=== PATIENT | female | born 1985 | race Caucasian/White ===

== ENCOUNTER 2022-07-06 16:28 | Outpatient (CLI) | payer OTHER, SELFPAY ==
[2022-07-06] VITALS (7 sets, daily range): BP systolic 139–143; BP diastolic 74–82; PULSE 66–83; RESP 18; TEMP 36.8; O2SAT 98
[2022-07-06 17:44] LABS: Total Protein Urine 15 mg/dL
[2022-07-06 17:44] LABS: Alanine Aminotransferase* 16 U/L (4-35); Aspartate Amino Transferase* 25 U/L (12-35); Blood Urea Nitrogen* 7 mg/dL (5-24); Creatinine* 0.5 mg/dL (0.5-1.5); Estimated Glomerular Filt Rate 125 ml/min
[2022-07-06 17:52] LABS: Hematocrit 31.3 % (33.0-51.0); Hemoglobin* 10.3 gm/dL (12.0-16.0); Mean Corpuscular HGB Conc 33 gm/dL (32-36); Mean Corpuscular Hemoglobin 29 pg (26-34); Mean Corpuscular Volume 87 fL (80-100); Platelet Count* 270 K/uL (140-440); White Blood Count* 11.33 K/uL (4.50-11.00)
[2022-07-06 17:57] LABS: Slide Review Reflex No
--- NOTE | 2022-07-06 18:49 | P.OBLDTN_ITS ---
OB - Triage/Final Diagnosis Visit Information Date Seen: 07/06/22 Narrative: The patient is a 37 year old 2 para 1 at 36+4 weeks gestation by LMP confirmed with first trimester US, who presents with elevated BP readings at home and clinic ranging from 130-150s/80s. She reports no headache, no vision changes, no RUQ pain or swelling. She has a history of preeclampsia with prior . Evaluation Cervical dilation (cm): 0 Cervical effacement (%): 10 Laboratory results: Laboratory Tests 07/06/22 07/06/22 07/06/22 Range/Units 17:16 17:16 16:46 WBC 11.33 H (4.50-11.00) K/uL RBC 3.60 L (4.00-5.20) m/uL Hgb 10.3 L (12.0-16.0) gm/dL Hct 31.3 L (33.0-51.0) % MCV 87 (80-100) fL MCH 29 (26-34) pg MCHC 33 (32-36) gm/dL Plt Count 270 (140-440) K/uL BUN 7 (5-24) mg/dL Creatinine 0.5 (0.5-1.5) mg/dL Estimated GFR 125 ml/min AST 25 (12-35) U/L ALT 16 (4-35) U/L Urine Creatinine 38.0 mg/dL Protein/Creatinin Ratio 0.30 H (0-0.19) Urine Total Protein 15 mg/dL Vital signs: Vital Signs - 24 hr 07/06/22 16:55 07/06/22 17:00 07/06/22 17:05 Temperature Pulse Rate 70 Respiratory Rate Blood Pressure 139/78 Pulse Oximetry 98 98 07/06/22 17:05 07/06/22 17:27 07/06/22 17:37 Temperature 98.2 F Pulse Rate 66 71 Respiratory Rate 18 Blood Pressure 141/74 H 143/82 H Pulse Oximetry 07/06/22 17:47 07/06/22 17:58 Temperature Pulse Rate 75 69 Respiratory Rate Blood Pressure 142/82 H 139/80 Pulse Oximetry Fetus (Single) Heart Rate Baseline: 130 Guest Service Manager Variability: Moderate (6-25) Monitor Accelerations: Present Monitor Decelerations: None Station: -3 Final Diagnosis (1) : Status: Acute Problem details: 37-year-old 011 presents to discuss vaginal trial of labor in the setting of previous x1. section in 2018 due to non reassuring status. Her was induced due to preeclampsia at 37 weeks. She did meet criteria for preeclampsia with severe features and was treated with magnesium sulfate. This has been essentially uncomplicated. So far, blood pressures have been normal. Discussed with patient and that I cannot find any contraindications for a vaginal trial of labor. Discussed our clinic vaginal trial of labor after section consent form, given to patient to review at home, instructed that she should give it to her [facility] provider to be scanned in our system. Reviewed risk of uterine rupture and how we have established protocols to improve safety and still support our family medicine providers. Discussed recommendation to repeat a pelvic US at 36 weeks. Patient was satisfied with our discussion today and we will plan to follow up if needed if there are any changes during her in terms of new diagnosis etc... (2) Gestational HTN: Status: Acute
--- NOTE | 2022-07-06 19:33 | PC.OBNST ---
NST Note NST Note Start: 07/06/22 16:46 Freq: ONCE Status: Active Protocol: Document 07/06/22 18:00 CRISTINA (Rec: 07/06/22 19:33 CRISTINA [id number]) NST Note 3 Para (# of births) 1 EDC 07/31/22 Gestational Age In Weeks & Days 36 Weeks & 3 Days High Risk Factors High Blood Pressure - Gestational Patient Presented with Complaint(s) of Other Other Complaints Pt. sent over from [facility] [place] to evaluate high BP obtained in clinic. Orders for Pre E labs, EFM and serial BP's Reactive Yes Appropriate for Gestational Age Yes LAI Boyd Date 07/06/22 Reactive Yes Appropriate for Gestational Age Yes LAI Otoole Date 07/06/22 OB NST charge Yes Complete NST Note via Write Note Yes The provider's electronic signature indicates the NST is reactive/appropriate for gestational age. *Note to provider: If an addendum is required, open the patient's chart and click on the note under the Nurse/Allied Health tab.
[2022-07-07 11:58] LABS: Strep B DNA Probe NEGATIVE (Negative)
[2022-07-08 03:09] LABS: Strep B Pen/Amox Allergy No
== END 2022-07-06 18:10 | disposition home or self-care (01) ==
LOC: OB OUT 16:30 → OB 16:32
PROVIDERS: PCP Family Medicine; Visit Provider Family Medicine
DX: O13.3 Gestational [pregnancy-induced] hypertension without significant proteinuria, third trimester (principal); Z3A.36 36 weeks gestation of pregnancy
CPT/HCPCS: 36415; 59025; 82565; 82570; 84156; 84450; 84460; 84520; 85027; 87081; 87653; 99213

== ENCOUNTER 2022-07-10 18:00 | Inpatient (IN) | payer OTHER, SELFPAY ==
[2022-07-10] VITALS (10 sets, daily range): BP systolic 135–170; BP diastolic 71–96; PULSE 71–85; TEMP 36.8–37.1; O2SAT 98; BMI 32.7
[2022-07-10 18:52] LABS: Basophils Percent Auto 0.3 % (0.0-3.0); Hemoglobin* 10.4 gm/dL (12.0-16.0); Mean Corpuscular Hemoglobin 29 pg (26-34); Mean Corpuscular Volume 84 fL (80-100); RDW Coefficient of Variation % 13.1 % (11.5-15.5)
[2022-07-10 18:53] LABS: Slide Review Reflex No
[2022-07-10 19:04] LABS: Immature Granulocytes Pct Auto 0.2 %
[2022-07-10 19:05] LABS: Eosinophils Percent Auto 3.2 % (0.0-7.0); Hematocrit 30.2 % (33.0-51.0); Lymphocytes Percent Auto 18.6 % (20-44); Mean Corpuscular HGB Conc 34 gm/dL (32-36); Monocytes Percent Auto 6.1 % (0.0-11.0); Neutrophils Percent Auto 71.6 % (42.0-72.0); Platelet Count* 293 K/uL (140-440); Red Blood Count 3.61 m/uL (4.00-5.20)
[2022-07-10 19:06] LABS: INR 0.92 (0.91-1.10); Prothrombin Time 12.9 Seconds
[2022-07-10 19:07] LABS: Creatinine* 0.6 mg/dL (0.5-1.5); Est. Creatinine Clearance* 132.02; Estimated Glomerular Filt Rate 120 ml/min
[2022-07-10 19:08] LABS: Alanine Aminotransferase* 17 U/L (4-35); Aspartate Amino Transferase* 24 U/L (12-35); Blood Urea Nitrogen* 7 mg/dL (5-24); Fibrinogen* 451 mg/dL (200-450)
[2022-07-10 19:24] LABS: SARS PCR* Negative SARS-CoV-2 (Negative)
--- NOTE | 2022-07-10 19:47 | P.OBHP_ITS ---
OB - H&P: HPI Labor/Induction History of Present Illness Date Seen: 07/10/22 Chief Complaint: The patient is a 37 year old 2 para 1 at 37 weeks gestation by LMP confirmed with 1st trimester US, who presents for IOL for gestational HTN. Chief complaint: GHTN/TOLAC : 2 Para: 1 Indications for induction: induced hypertension Narrative: Noreen Collins is a 37 year old female here for induction for gestational HTN diagnosed in the last week with elevated home and clinic BP readings. She has had no headaches, no vision changes, no RUQ pain and no swelling. Baby has been active and no regular contractions. Prior to the last week, had been uncomplicated. History of Present Dating criteria: based on LMP care: good care Ultrasounds: normal mid trimester US complications: gestational hypertension Medical complications: none Labs Blood type: A (+) positive Rubella: immune RPR/VDLR: nonreactive GBS status: negative HBsAG: negative Review of Systems Status of ROS: Reports: 6 or more systems reviewed and unremarkable except as noted in History and below Meds Home Medications and Allergies Home Medications Medication Instructions Recorded Confirmed Type aspirin 81 mg chewable tablet 81 mg PO QDAY 05/31/22 07/10/22 History prenat.vits,arsen,ppx-ooxt-sborj 1 tab PO QDAY 05/31/22 07/10/22 History Allergies Allergy/AdvReac Type Severity Reaction Status Date / Time No Known Allergies Allergy Unknown Unverified 05/31/22 10:51 OB - H&P: Exam Physical Exam: Vital signs: Temp Pulse BP Pulse Ox 98.7 F 82 135/73 98 07/10/22 18:29 07/10/22 18:44 07/10/22 18:44 07/10/22 18:35 Constitutional: Constitutional: no acute distress Routine HEENT Exam: Head: Present atraumatic Eye: Present EOMI ENT: Pres ent mucous membranes moist Routine Neck Exam: Neck: Present full ROM Routine Respiratory Exam: Respiratory: Present CTA bilaterally Routine Cardiovascular Exam: Cardiovascular: RRR Comments: no murmur Routine Abdominal Exam: Abdominal: Present soft Comments: no tenderness Detailed Labor and Delivery Exam: Patient Gravid: Yes Dilation (cm): 1 Effacement (%): 40 Cervix position: posterior Consistency: soft Fetus (Single): Station: -3 Routine Back/Spine/Pelvis Exam: Back/Spine: full ROM Routine Skin Exam: Present intact Routine Neurological Exam: Present alert and oriented X3 OB - Results Labs Labs: Short CBC 07/10/22 Range/Units 18:41 WBC 11.10 H (4.50-11.00) K/uL Hgb 10.4 L (12.0-16.0) gm/dL Hct 30.2 L (33.0-51.0) % Plt Count 293 (140-440) K/uL BMP 07/10/22 18:41 BUN 7 Creatinine 0.6 Liver Function 07/10/22 Range/Units 18:41 AST 24 (12-35) U/L ALT 17 (4-35) U/L OB - Problem Based A/P Additional Plan (1) Gestational HTN: Status: Acute (2) : Problem details: 37-year-old 011 presents to discuss vaginal trial of labor in the setting of previous x1. section in 2018 due to non reassuring status. Her was induced due to preeclampsia at 37 weeks. She did meet criteria for preeclampsia with severe features and was treated with magnesium sulfate. This has been essentially uncomplicated. So far, blood pressures have been normal. Discussed with patient and that I cannot find any contraindications for a vaginal trial of labor. Discussed our clinic vaginal trial of labor after section consent form, given to patient to review at home, instructed that she should give it to her [facility] provider to be scanned in our system. Reviewed risk of uterine rupture and how we have established protocols to improve safety and still support our family medicine providers. Discussed recommendation to repeat a pelvic US at 36 weeks. Patient was satisfied with our discussion today and we will plan to follow up if needed if there are any changes during her in terms of new diagnosis etc... Status: Acute (3) Advanced maternal age (AMA) in : Status: Acute Delivery/Labor/Induction Plan Plan: induction Induction method: Intracervical balloon catheter (Placed with 60 mL in both intrauterine and intracervical balloons. )
[2022-07-10 21:02] LABS: Total Protein Urine 22 mg/dL
[2022-07-10] MEDS: MORPHINE 10 MG/ML inj IM (22:39)
[2022-07-10] MEDS: hydrOXYzine pamoate 25 MG CAPSULE 100 MG PO (22:39)
[2022-07-11] VITALS (112 sets, daily range): BP systolic 103–166; BP diastolic 51–85; PULSE 49–77; RESP 16–18; TEMP 36.4–36.9; O2SAT 99–100
[2022-07-11] MEDS: OXYTOCIN 30 unit/500 ML in NS 30 UNIT/500 ML BAG IVPB (00:10)
[2022-07-11] MEDS: LACTATED RINGERS 1000 ML 1,000 ML 125 ML IV ×2 (00:10→08:09)
[2022-07-11] MEDS: LABETALOL HCL 5 MG/ML inj IVP ×2 (08:44→15:30)
[2022-07-11] MEDS: MAGNESIUM SULFATE 2 GM/50 ML PIGGYBACK IVPB (09:06)
[2022-07-11 09:32] LABS: Hematocrit 30.6 % (33.0-51.0); Hemoglobin* 10.3 gm/dL (12.0-16.0); Mean Corpuscular HGB Conc 34 gm/dL (32-36); Mean Corpuscular Hemoglobin 29 pg (26-34); Mean Corpuscular Volume 86 fL (80-100); Platelet Count* 232 K/uL (140-440); Red Blood Count 3.55 m/uL (4.00-5.20); White Blood Count* 13.78 K/uL (4.50-11.00)
[2022-07-11 09:41] LABS: Slide Review Reflex No
[2022-07-11 09:53] LABS: Creatinine* 0.5 mg/dL (0.5-1.5); Est. Creatinine Clearance* 158.42; Estimated Glomerular Filt Rate 125 ml/min
[2022-07-11 09:54] LABS: Alanine Aminotransferase* 15 U/L (4-35); Aspartate Amino Transferase* 21 U/L (12-35); Blood Urea Nitrogen* 5 mg/dL (5-24)
--- NOTE | 2022-07-11 12:01 | PM.OBPNL ---
Subjective Date Seen: 07/11/22 Objective Exam: at 37+1 with IOL for gestational HTN. Has had BP readings >160 systolic and has been started on magnesium and had one dose of labetalol. Baby has also been transverse presentation per mom. Bedside US shows baby is now vertex which is confirmed with cervical check, however cervix is too posterior and thick to AROM at this time. Vital Signs: Last Vital Signs Temp 98.2 F 07/11/22 04:17 Pulse 62 07/11/22 11:43 BP 134/67 07/11/22 11:43 Pulse Ox 98 07/10/22 18:35 Pelvic Exam Dilation (cm): 4 Effacement (%): 50 Station: -4 Contractions Monitor mode: External Contraction pattern: Irregular Contraction intensity: Mild Assessment Assessment: induction ongoing Station: -3 Status: Category l [facility] Variability: Moderate (6-25) Monitor Accelerations: Present Monitor Decelerations: None Plan Plan: Continue pitocin protocol and patient up walking to encourage descent. Magnesium per protocol. Continue to treat BP >160/110.
[2022-07-11] MEDS: LIDOCAINE 2% (PF) 5 ML VIAL EPIDURAL (16:03)
[2022-07-11] MEDS: ROPIVACAINE 0.2% 100 ml 100 ML 12 MG EPIDURAL ×2 (16:04→23:31)
[2022-07-11] MEDS: PHENYLEPHRINE 100 MCG/ML SYRINGE IVP ×4 (16:14→16:56)
--- NOTE | 2022-07-11 16:21 | PM.ANBPRC ---
[facility] Medical History Gestational HTN Surgical History Status post primary low transverse section Family History Grandmother No problems noted. Social History Smoking Status: Never smoker Meds Home Medications and Allergies Home Medications Medication Instructions Recorded Confirmed Type aspirin 81 mg chewable tablet 81 mg PO QDAY 05/31/22 07/10/22 History prenat.vits,arsen,fcu-rzfn-okcxs 1 tab PO QDAY 05/31/22 07/10/22 History Allergies Allergy/AdvReac Type Severity Reaction Status Date / Time No Known Allergies Allergy Unknown Verified 07/11/22 09:37 Results Labs Labs: Laboratory Results - last 24 hr 07/10/22 07/10/22 07/10/22 18:33 18:41 18:41 WBC RBC Hgb Hct MCV MCH MCHC RDW Coeff of Esau Plt Count Neut % (Auto) Lymph % (Auto) [place] % (Auto) Eos % (Auto) Baso % (Auto) Neut # (Auto) Lymph # (Auto) [place] # (Auto) Eos # (Auto) Baso # (Auto) INR 0.92 Fibrinogen 451 H BUN 7 Creatinine 0.6 Estimated Creat Clear 132.02 Estimated GFR 120 AST 24 ALT 17 Urine Creatinine Protein/Creatinin Ratio Urine Total Protein SARS-CoV-2 (PCR) Negative SARS-CoV-2 Blood Type Antibody Screen 07/10/22 07/10/22 07/10/22 18:41 18:41 20:00 WBC 11.10 H RBC 3.61 L Hgb 10.4 L Hct 30.2 L MCV 84 MCH 29 MCHC 34 RDW Coeff of Esau 13.1 Plt Count 293 Neut % (Auto) 71.6 Lymph % (Auto) 18.6 L [place] % (Auto) 6.1 Eos % (Auto) 3.2 Baso % (Auto) 0.3 Neut # (Auto) 7.90 H Lymph # (Auto) 2.10 [place] # (Auto) 0.70 Eos # (Auto) 0.40 Baso # (Auto) 0.00 INR Fibrinogen BUN Creatinine Estimated Creat Clear Estimated GFR AST ALT Urine Creatinine 279.0 Protein/Creatinin Ratio 0.00 Urine Total Protein 22 SARS-CoV-2 (PCR) Blood Type A Positive Antibody Screen NEGATIVE 07/11/22 07/11/22 09:20 09:20 WBC 13.78 H RBC 3.55 L Hgb 10.3 L Hct 30.6 L MCV 86 MCH 29 MCHC 34 RDW Coeff of Esau Plt Count 232 Neut % (Auto) Lymph % (Auto) [place] % (Auto) Eos % (Auto) Baso % (Auto) Neut # (Auto) Lymph # (Auto) [place] # (Auto) Eos # (Auto) Baso # (Auto) INR Fibrinogen BUN 5 Creatinine 0.5 Estimated Creat Clear 158.42 Estimated GFR 125 AST 21 ALT 15 Urine Creatinine Protein/Creatinin Ratio Urine Total Protein SARS-CoV-2 (PCR) Blood Type Antibody Screen Vital Signs Vital Signs: Last Vital Signs Temp 98.1 F 07/11/22 13:00 Pulse 56 L 07/11/22 16:19 BP 109/54 L 07/11/22 16:19 Pulse Ox 99 07/11/22 16:09 Weight: 97.551 kg Height: 172.72 cm Anesthesia Procedures Epidural Insertion Patient Location: OB Start Time: 15:30 Stop Time: 16:30 Start Date: 07/11/22 Stop Date: 07/11/22 Reason for Block: procedure for pain Patient Position: sitting Performed By: Anne Cook Preanesthetic Checklist: IV checked, risks and benefits discussed, monitors and equipment checked, pre-op evaluation, timeout performed and anesthesia consent Prep: chlorhexidine gluconate Monitoring: blood pressure monitoring, continuous pulse oximetry and heart rate Approach: midline Vertebral Space: lumbar (1-5) Epidural Technique: MALINI saline Needle Type: Tuohy needle Injection Technique: continuous catheter (continuous catheter) Needle gauge: 17 Needle Length (cm): 10 cm Needle Insertion Depth (cm): 7 Catheter Gauge: 19 Catheter Type: multi-orifice Catheter at skin depth (cm): 15 Test Dose Result: negative and lidocaine 1.5% with epinephrine 1 to 200,000
[2022-07-11] MEDS: ePHEDrine sulfate 5 MG/ML inj 10 MG IVP ×2 (16:37→16:48)
--- NOTE | 2022-07-11 16:59 | P.OBPN_ITS ---
Subjective Date Seen: 07/11/22 Narrative: at 37+1 IOL for gestational HTN, now with preeclampsia with severe features based on BPs in severe range. She is still asymptomatic without RODRÍGUEZ, vision changes or swelling. Has had an epidural and is feeling good. Underwent AROM with return of clear fluid. Objective Vital Signs: Last Vital Signs Temp 98.1 F 07/11/22 13:00 Pulse 55 L 07/11/22 16:57 BP 109/60 07/11/22 16:57 Pulse Ox 99 07/11/22 16:09 Pelvic Exam Dilation (cm): 5 Effacement (%): 50 Station: -2 Contractions Monitor mode: External Contraction pattern: Regular Contraction intensity: Moderate Assessment Assessment: active labor Station: -2 Amniotic Membrane Status: AROM Status: Category l Detention Variability: Moderate (6-25) Monitor Accelerations: Present Monitor Decelerations: None Plan Plan: Continue pitocin induction. Continue Magnesium and serial labs. Anticipate . OB and anesthesia aware TOLAC patient in active labor.
[2022-07-11 18:53] LABS: Hematocrit 33.6 % (33.0-51.0); Mean Corpuscular HGB Conc 33 gm/dL (32-36); Mean Corpuscular Hemoglobin 29 pg (26-34); Mean Corpuscular Volume 87 fL (80-100); Platelet Count* 217 K/uL (140-440); Red Blood Count 3.85 m/uL (4.00-5.20); White Blood Count* 14.98 K/uL (4.50-11.00)
[2022-07-11 18:56] LABS: Slide Review Reflex No
[2022-07-11 19:16] LABS: Alanine Aminotransferase* 16 U/L (4-35); Aspartate Amino Transferase* 23 U/L (12-35); Blood Urea Nitrogen* 7 mg/dL (5-24); Creatinine* 0.5 mg/dL (0.5-1.5); Est. Creatinine Clearance* 158.42; Estimated Glomerular Filt Rate 125 ml/min
[2022-07-11 19:18] LABS: INR 0.96 (0.91-1.10); Prothrombin Time 13.3 Seconds
[2022-07-11 19:19] LABS: Fibrinogen* 499 mg/dL (200-450)
[2022-07-11 19:22] LABS: Magnesium* 4.7 mg/dL (1.5-2.6)
[2022-07-11] MEDS: LACTATED RINGERS 1000 ML 1,000 ML 75 ML IV (20:20)
[2022-07-12] VITALS (27 sets, daily range): BP systolic 118–159; BP diastolic 60–87; PULSE 68–92; RESP 16–18; TEMP 36.3–36.6; O2SAT 98
[2022-07-12] MEDS: fentaNYL 100 MCG/2 ML inj EPIDURAL (00:05)
--- NOTE | 2022-07-12 01:37 | PM.OBPRCVD ---
Procedure Procedure Done: Global Events: Gestational Hypertension, Labor Induction and AMA Induction method: Intracervical balloon catheter Delivery augmentation: rupture of membranes Delivery monitor: external FHT, external uterine and internal FHT Route of delivery: Laceration description: Vaginal - 1st Degree Delivery repair: Vicryl Estimated blood loss (mL): 75 Anesthesia type: Epidural Narrative: The patient is a 37 year-old admitted on 07/10/22 at 37 Weeks, 0 Days gestation for IOL for gestational HTN.? Cervical exam on admission was 1 cm/20 % effaced/-3 station with membranes intact in vertex presentation.? Contractions were absent.? heart rate a category 1 tracing. She underwent cook catheter placement on 07/10 at 1932, removed 12 hours later on 07/11/22 and pitocin per protocol was continued. ? AROM occurred at 1642 on 07/11 with clear fluid. ? Labor Analgesia:? epidural ? Pitocin:? yes ? Labor onset:? 1642 ? Complete:? 0039 07/12/22 ? Pushing:? 0052 ? heart tones during second stage were category 1. ? At 0014 a viable female delivered in vertex OA presentation over intact perineum via spontaneous vaginal delivery.? Infant was placed on maternal abdomen.? Cord was clamped and cut after a 30-60 second delay.? Nose and mouth were bulb suctioned.? Infant weight pending.? 8 at 1 minute and 9 at 5 minutes.? Shoulder dystocia: no.? Nuchal cord: yes, delivered through cord. ? Placenta delivered spontaneously and complete at 0019 with a 3 vessel cord. ? Mother and infant were stable after delivery. ? Lacerations:? 1st degree vaginal, repaired with 3-0 vicryl suture. ? Blood loss: 75 mL. Blood loss measurement type: QBL ? Sponge and needles counts are correct. Gender: Female presentation: vertex Placental Delivery Description: Spontaneous Cord Description: 3 Vessels
[2022-07-12] MEDS: IBUPROFEN 600 MG TABLET PO ×2 (04:32→20:54)
[2022-07-12 05:24] LABS: Hemoglobin* 10.6 gm/dL (12.0-16.0); Mean Corpuscular HGB Conc 34 gm/dL (32-36); Mean Corpuscular Hemoglobin 29 pg (26-34); Mean Corpuscular Volume 85 fL (80-100); Platelet Count* 242 K/uL (140-440); Red Blood Count 3.64 m/uL (4.00-5.20); White Blood Count* 18.29 K/uL (4.50-11.00)
[2022-07-12 05:34] LABS: Slide Review Reflex No
[2022-07-12 05:39] LABS: Alanine Aminotransferase* 16 U/L (4-35); Aspartate Amino Transferase* 25 U/L (12-35); Creatinine* 0.5 mg/dL (0.5-1.5); Est. Creatinine Clearance* 158.42; Estimated Glomerular Filt Rate 125 ml/min
[2022-07-12] MEDS: DOCUSATE SODIUM 100 MG CAPSULE PO ×2 (09:48)
[2022-07-12] MEDS: LABETALOL HCL 100 MG TABLET PO ×2 (09:48→20:54)
[2022-07-12] MEDS: LACTATED RINGERS 1000 ML 1,000 ML 75 ML IV ×3 (09:49→22:46)
[2022-07-12 17:48] LABS: Magnesium* 5.3 mg/dL (1.5-2.6)
[2022-07-13] VITALS (7 sets, daily range): BP systolic 126–149; BP diastolic 75–86; PULSE 60–73; RESP 16; TEMP 36.4–36.8; O2SAT 97–98
[2022-07-13] MEDS: IBUPROFEN 600 MG TABLET PO ×3 (04:30→19:51)
--- NOTE | 2022-07-13 07:43 | PM.OBPNVD1 ---
OB - PN:Subj Subjective Date Seen: 07/13/22 Patient comments OB post-: no complaints, pain well controlled and tolerating diet infant status: and doing well feeding status: exclusively OB - PN: Obj Exam Physical Exam: Vital signs: Temp Pulse Resp BP Pulse Ox O2 Del Method 98 F 73 16 133/79 97 07/13/22 04:31 07/13/22 04:31 07/13/22 04:31 07/13/22 04:31 07/13/22 04:07/13/22 04:31 Constitutional: Constitutional: no acute distress Routine Abdominal Exam: Abdominal: Present soft Fundus: Present firm (at umbilicus) Routine Neurological Exam: Neurological: Present alert and oriented X3 OB - PN: Obj Data Labs Labs: Laboratory Results - last 24 hr 07/12/22 17:00 Magnesium 5.3 H* OB - PN: A/P Vaginal Delivery Assessment and Plan (1) Gestational HTN: Status: Acute (2) : Problem details: 37-year-old 011 presents to discuss vaginal trial of labor in the setting of previous x1. section in 2018 due to non reassuring status. Her was induced due to preeclampsia at 37 weeks. She did meet criteria for preeclampsia with severe features and was treated with magnesium sulfate. This has been essentially uncomplicated. So far, blood pressures have been normal. Discussed with patient and that I cannot find any contraindications for a vaginal trial of labor. Discussed our clinic vaginal trial of labor after section consent form, given to patient to review at home, instructed that she should give it to her [facility] provider to be scanned in our system. Reviewed risk of uterine rupture and how we have established protocols to improve safety and still support our family medicine providers. Discussed recommendation to repeat a pelvic US at 36 weeks. Patient was satisfied with our discussion today and we will plan to follow up if needed if there are any changes during her in terms of new diagnosis etc... Status: Inactive (3) Advanced maternal age (AMA) in : Status: Acute Plan Plan: routine care Comments: Continue labetalol. Likely d/c tomorrow if BP well controlled.
[2022-07-13 08:30] LABS: Basophils Percent Auto 0.3 % (0.0-3.0); Eosinophils Percent Auto 2.7 % (0.0-7.0); Hematocrit 29.4 % (33.0-51.0); Hemoglobin* 9.6 gm/dL (12.0-16.0); Immature Granulocytes Pct Auto 0.3 %; Lymphocytes Percent Auto 20.1 % (20-44); Mean Corpuscular HGB Conc 33 gm/dL (32-36); Mean Corpuscular Hemoglobin 29 pg (26-34); Mean Corpuscular Volume 90 fL (80-100); Monocytes Percent Auto 6.8 % (0.0-11.0); Neutrophils Percent Auto 69.8 % (42.0-72.0); Platelet Count* 243 K/uL (140-440); RDW Coefficient of Variation % 14.1 % (11.5-15.5); Red Blood Count 3.27 m/uL (4.00-5.20); White Blood Count* 11.02 K/uL (4.50-11.00)
[2022-07-13 08:37] LABS: Slide Review Reflex No
[2022-07-13] MEDS: DOCUSATE SODIUM 100 MG CAPSULE PO (08:54)
[2022-07-13] MEDS: LABETALOL HCL 100 MG TABLET PO ×2 (08:55→21:32)
[2022-07-13 09:01] LABS: Creatinine* 0.6 mg/dL (0.5-1.5); Est. Creatinine Clearance* 132.02; Estimated Glomerular Filt Rate 120 ml/min
[2022-07-13 09:02] LABS: Alanine Aminotransferase* 16 U/L (4-35); Aspartate Amino Transferase* 26 U/L (12-35); Blood Urea Nitrogen* 6 mg/dL (5-24)
[2022-07-14 00:45] VITALS: BP 118/78; PULSE 62; RESP 16; TEMP 36.8; O2SAT 98
[2022-07-14] MEDS: IBUPROFEN 600 MG TABLET PO (04:29)
[2022-07-14 04:30] VITALS: BP 145/87; PULSE 62; RESP 16; TEMP 36.5; O2SAT 98
[2022-07-14 04:45] VITALS: BP 150/81; PULSE 62; RESP 16; O2SAT 98
[2022-07-14] MEDS: LABETALOL HCL 100 MG TABLET 200 MG PO (05:11)
[2022-07-14 05:24] LABS: Mean Corpuscular HGB Conc 32 gm/dL (32-36); Mean Corpuscular Hemoglobin 29 pg (26-34); Mean Corpuscular Volume 90 fL (80-100); Platelet Count* 218 K/uL (140-440); Red Blood Count 3.11 m/uL (4.00-5.20); White Blood Count* 7.26 K/uL (4.50-11.00)
[2022-07-14 05:30] LABS: Slide Review Reflex No
[2022-07-14 05:39] LABS: INR 0.85 (0.91-1.10); Prothrombin Time 12.2 Seconds
[2022-07-14 05:41] LABS: Creatinine* 0.5 mg/dL (0.5-1.5); Est. Creatinine Clearance* 158.42; Estimated Glomerular Filt Rate 125 ml/min
[2022-07-14 05:42] LABS: Alanine Aminotransferase* 16 U/L (4-35); Aspartate Amino Transferase* 23 U/L (12-35); Blood Urea Nitrogen* 8 mg/dL (5-24)
[2022-07-14 05:43] LABS: Fibrinogen* 481 mg/dL (200-450)
[2022-07-14 07:58] VITALS: BP 134/82; PULSE 62; RESP 16; TEMP 36.7; O2SAT 98
[2022-07-14] MEDS: DOCUSATE SODIUM 100 MG CAPSULE PO (08:01)
[2022-07-14 11:57] VITALS: BP 135/84; PULSE 61; RESP 16; O2SAT 98
--- NOTE | 2022-07-14 13:19 | PM.OBDSVD1 ---
DS: Providers Provider Date Seen: 07/14/22 Date of admission: 07/10/22 18:00 Primary care physician: Sonal Mancia MD Admitting Clinician: Sonal Mancia MD Attending Physician on discharge: Sonal Mancia MD DS: Diagnosis Discharge Diagnosis (1) Gestational HTN: Status: Acute (2) Severe pre-eclampsia: Status: Acute (3) Vaginal delivery after previous delivery () declined: Status: Acute Exam Const: Vital Signs, click to edit/add: Vital Signs - 24 hr 07/13/22 13:41 07/13/22 17:00 07/13/22 20:01 Temperature 98.3 F 97.8 F 97.8 F Pulse Rate [Pulse Oximeter] 60 73 68 Respiratory Rate 16 16 16 Blood Pressure [Le ft Arm] 127/81 132/78 129/84 Pulse Oximetry 97 98 98 Oxygen Delivery Me thod Room Air Room Air Room Air 07/14/22 00:45 07/14/22 04:30 07/14/22 04:45 Temperature 98.2 F 97.7 F Pulse Rate [Pulse Oximeter] 62 62 62 Respiratory Rate 16 16 16 Blood Pressure [Le ft Arm] 118/78 145/87 H 150/81 H Pulse Oximetry 98 98 98 Oxygen Delivery Me thod Room Air Room Air Room Air 07/14/22 07:58 07/14/22 11:57 Temperature 98.1 F Pulse Rate [Pulse Oximeter] 62 61 Respiratory Rate 16 16 Blood Pressure [Le ft Arm] 134/82 135/84 Pulse Oximetry 98 98 Oxygen Delivery Me thod Room Air Room Air Common normals: no apparent distress and healthy appearing GI: Other: uterus firm 1 cm below umbilicus and non tender. OB - DS: Summary Hospital Course Hospital Course: The patient is a 37 year old G 3 P 2012 at 37+1 weeks gestation that was admitted to the Center on 07/10/22 for IOL for gestational HTN. She went on to develop BP in severe range and was treated with labetalol and magnesium. She had an uncomlicated vaginal delivery. She delivered a viable female infant. She is breast feeding. the patient has done well. She has needed oral labetalol and dose is currently 200 mg BID with adequate BP control. Peripartum Data Infant delivery method: Vaginal Laceration description: Vaginal - 1st Degree complications: none Gender: Female Infant Discharge Plan: Home Status at Discharge Functional status at discharge: independent ambulation Overall status at discharge: patient is progressing back to baseline Time Spent with Patient Time attestation: Total time spent providing and/or coordinating discharge services: Discharge Plan Discharge Disposition: Home, Self-Care Date of Admission: 07/10/22 18:00 Attending Provider on Discharge: Sonal Mancia Primary Care Provider: Sonal Mancia Condition: Improved Anticipated Discharge Date/Time: 07/14/22 13:22 Discharge Medications: New labetalol 100 mg Tablet 200 mg PO BID Qty: 90 0RF Continued prenat.vits,arsen,cos-sxyw-moqmx Tablet 1 tab PO QDAY Discontinued aspirin 81 mg tablet,chewable 81 mg PO QDAY Discharge Orders: Discharge Order (Routine); Ordered 07/14/22 Ordered By: Sonal Mancia Patient Education: OB Vaginal/Breast Feeding Activity Level: No Restrictions Activity Detail: Nothing per vagina for 6 weeks. Discharge Diet: Regular Follow Up Appointments: Sonal Mancia MD [Primary Care Provider] - Forms: [employer] Info Instructions Discharge Comments: Follow up BP tomorrow (07/15/22) at 9:40 with Van's appointment
== END 2022-07-14 13:55 | disposition home or self-care (01) | DRG 807 ==
PROVIDERS: Admitting Provider Family Medicine; PCP Family Medicine; Visit Provider Family Medicine
DX: O14.14 Severe pre-eclampsia complicating childbirth (principal); Z37.0 Single live birth; O70.0 First degree perineal laceration during delivery; O34.211 Maternal care for low transverse scar from previous cesarean delivery; O13.4 Gestational [pregnancy-induced] hypertension without significant proteinuria, complicating childbirth; Z3A.37 37 weeks gestation of pregnancy
CPT/HCPCS: 01967; 36415; 59200; 76815; 82565; 82570; 83735; 84156; 84450; 84460; 84520; 85018; 85025; 85027; 85384; 85610; 86850; 86900; 86901; 87635; 88307; A9270; J2270; J2370; J2795; J3010; J3475; J7120